=== PATIENT | female | born 1970 | race Caucasian/White ===

== ENCOUNTER 2016-08-12 20:07 | Emergency (ER) | payer SELFPAY ==
[~2016-08-12] VITALS: Ht 175.3 cm; Wt 64.0 kg
[2016-08-12 20:32] LABS: ADD MIUA? YES; BILIRUBIN NEGATIVE; BLOOD MODERATE; COLOR YELLOW ((YELLOW)); GLUCOSE (STRIP) NEGATIVE; KETONES 5; LEUKOCYTES NEGATIVE; NITRITE NEGATIVE; PROTEIN (STRIP) 30; SPECIFIC GRAVITY 1.021 (1.000-1.030)
[2016-08-12 20:38] LABS: BACTERIA NONE SEEN /HPF; EPITHELIAL CELLS RARE /HPF; MUCUS TRACE /LPF; UCUL ADDED? NO; WHITE BLOOD CELLS 0-5 /HPF (0-5)
[2016-08-12 20:38] LABS: EOSINOPHIL (%) 0.1 % (0-5); HEMATOCRIT 34.9 % (36.0-46.0); IMMATURE GRANULOCYTE (%) 0.7 % (0.0-0.7); IMMATURE GRANULOCYTE COUNT 0.1 K/uL; INSTRUMENT ABS NEUTROPHIL CT 11.3 K/uL; LYMPHOCYTE COUNT 1.3 K/uL (1.0-2.8); MCH 29.6 PG (29.0-34.0); MCHC 34.1 G/DL (30.0-36.0); MCV 86.8 FL (83-99); MEAN PLAT.VOLUME 9.6 uM^3 (9.5-12.4); MONOCYTE (%) 8.9 % (3-12); MONOCYTE COUNT 1.3 K/uL (0-0.8); NEUTROPHIL (%) 80.8 % (45-76); NEUTROPHIL COUNT 11.3 K/uL (1.8-6.4); PLATELET COUNT 334 K/uL (156-360); RBC DIS.WIDTH-CV 12.1 % (11.8-14.6); RBC DIS.WIDTH-SD 38.9 % (39-53); RED BLOOD COUNT 4.02 M/uL (3.80-5.20)
[2016-08-12 20:46] LABS: CHLORIDE 101 mEq/L (99-109); POTASSIUM 3.9 mEq/L (3.7-5.4); SODIUM 135 mEq/L (136-147)
[2016-08-12 20:47] LABS: GLUCOSE 106 mg/dL (70-99)
[2016-08-12 20:49] LABS: ANION GAP 11 MEQ/L (2-14)
[2016-08-12 20:52] LABS: UREA NITROGEN (BUN) 8 mg/dL (9-23)
[2016-08-12 20:56] LABS: GFR ESTIMATE (CALCULATED) > 59 mL/min/
[2016-08-12] MEDS ORDERED: MOTRIN600 MG PO (22:59)
[2016-08-12] MEDS ORDERED: ZITHROMAX Z-PA250 MG PO (22:59)
[2016-08-12 23:35] VITALS: BP 115/73
== END 2016-08-12 23:36 | disposition home or self-care (01) ==
LOC: EME 20:07
DX: J18.9 Pneumonia, unspecified organism (principal)
CPT/HCPCS: 71020; 80048; 81003; 83605; 85025; 99281; 99284

== ENCOUNTER 2016-08-25 11:22 | Emergency (ER) | payer SELFPAY ==
[~2016-08-25] VITALS: Ht 175.3 cm; Wt 69.0 kg
[~2016-08-25 11:22] MED LIST: MOTRIN600 MG PO; ZITHROMAX Z-PA250 MG PO
[2016-08-25 11:33] VITALS: BP 93/63
== END 2016-08-25 13:31 | disposition left against medical advice (07) ==
LOC: EME 11:22
DX: J18.9 Pneumonia, unspecified organism (principal); Z09 Encounter for follow-up examination after completed treatment for conditions other than malignant neoplasm; Z53.21 Procedure and treatment not carried out due to patient leaving prior to being seen by health care provider
CPT/HCPCS: 71020